=== PATIENT | male | born 1990 | race Two or more races ===

== ENCOUNTER 2018-06-02 23:17 | Emergency (ER) | payer SELFPAY ==
[~2018-06-02] VITALS: Ht 180.3 cm; Wt 97.7 kg
[~2018-06-02 23:17] MED LIST: MULT1TAB60 PO; [UNRECOGNIZED DRUG - CODE] PO
[2018-06-02 23:21] VITALS: BP 152/98
[2018-06-02] MEDS ORDERED: KETOROLAC 30 MG/1 ML ONE (23:49)
[2018-06-02] MEDS ORDERED: DIPHENHYDRAMINE 25 MG CAPSULE ONE (23:50)
[2018-06-02] MEDS ORDERED: PROCHLORPERAZINE 10MG TABLET ONE (23:50)
[2018-06-03] MEDS ORDERED: KETOROLAC 30 MG/1 ML IM ONE
[2018-06-03] MEDS ORDERED: PROCHLORPERAZINE 10MG TABLET PO ONE
[2018-06-03] MEDS ORDERED: DIPHENHYDRAMINE 25 MG CAPSULE PO ONE
[2018-06-03 00:22] LABS: RAPID INFLUENZA A Negative (Negative); RAPID INFLUENZA B Negative (Negative)
== END 2018-06-03 01:50 | disposition home or self-care (01) ==
LOC: ED 23:59
DX: G43.C0 Periodic headache syndromes in child or adult, not intractable (principal); B34.9 Viral infection, unspecified; Z90.89 Acquired absence of other organs
CPT/HCPCS: 87400; 93005; 96372; 99284; J1885; Q0163; Q0164